=== PATIENT | male | born 1995 | race Caucasian/White ===

== ENCOUNTER 2019-03-17 13:33 | Emergency (ER) | payer BC ==
[2019-03-17 14:01] VITALS: BP 143/92
--- NOTE | 2019-03-17 14:51 | RAD ---
EXAM: Abdomen acute complete. HISTORY: Pain. COMPARISON: None. FINDINGS: A frontal view of the chest and frontal upright and supine views of abdomen are obtained. There is no infiltrate, pleural effusion or pneumothorax. The heart is normal in size. No abnormally dilated loop of bowel seen. There is no free air. IMPRESSION: 1. No acute pulmonary finding. 2. Nonobstructive bowel gas pattern. Electronically signed by: Paradise Cabral MD (03/17/2019 2:48 PM) [place] [id number]
[2019-03-17] MEDS ORDERED: ONDA4TAB7 PO (15:10)
[2019-03-17] MEDS ORDERED: MELO7.5T29 PO (15:10)
[2019-03-17] MEDS ORDERED: PROM118S9 PO (15:10)
--- NOTE | 2019-03-17 15:10 | PHYS DOC ---
Past History Past Medical History: No Pertinent History Past Surgical History: Other Additional Past Surgical Histo: neisha montenegro sx Additional Smoking Information: vapes Alcohol Use: None Drug Use: Marijuana Adult General Chief Complaint Chief Complaint: OTHER COMPLAINTS [facility] HPI Patient is a 23-year-old male presents with left-sided upper chest pain for the past several months, it waxes and wanes. Nothing makes it significantly better or worse. Patient had 4 episodes of nausea and vomiting this morning. 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 This was relatively recently made worse due to narcotic pain medicines in November with Neisha Montenegro surgery. He has not been on narcotic pain medicines for the past month plus. Patient does use a vague being nicotine delivery device including flavored cartridges. Denies any PE risk factors. No blood in the emesis. No diarrhea. No blood in the stool or black tarry-looking stools.[] Review of Systems Review of Systems Constitutional: Denies fever or chills [] Eyes: Denies change in visual acuity, redness, or eye pain [] HENT: Denies nasal congestion or sore throat [] Respiratory: See history of present illness[] Cardiovascular: No additional information not addressed in HPI [] GI: Denies abdominal pain, vomiting, bloody stools or diarrhea [] : Denies dysuria or hematuria [] Musculoskeletal: Denies back pain or joint pain [] Integument: Denies rash or skin lesions [] Neurologic: Denies headache, focal weakness or sensory changes [] Endocrine: Denies polyuria or polydipsia [] All other systems were reviewed and found to be within normal limits, except as documented in this note. Allergies Allergies Allergies Coded Allergies Type Severity Reaction Last Updated Verified No Known Drug Allergies 03/17/19 No Physical Exam Physical Exam Constitutional: Well developed, well nourished, no acute distress, non-toxic appearance. [] HENT: Normocephalic, atraumatic, bilateral external ears normal, oropharynx moist, no oral exudates, nose normal. [] Eyes: PERRLA, EOMI, conjunctiva normal, no discharge. [] Neck: Normal range of motion, no tenderness, supple, no stridor. [] Cardiovascular:Heart rate regular rhythm, no murmur [] Lungs & Thorax: Bilateral breath sounds clear to auscultation [] Abdomen: Bowel sounds normal, soft, no tenderness, no masses, no pulsatile masses. [] Skin: Warm, dry, no erythema, no rash. [] Back: No tenderness, no CVA tenderness. [] Extremities: No tenderness, no cyanosis, no clubbing, ROM intact, no edema. [] Neurologic: Alert and oriented X 3, normal motor function, normal sensory function, no focal deficits noted. [] Psychologic: Affect normal, judgement normal, mood normal. [] Current Patient Data Vital Signs Vital Signs Date Time Temp Pulse Resp B/P (MAP) Pulse Ox O2 Delivery O2 Flow Rate FiO2 03/17/19 14:01 68 18 97 Room Air EKG EKG [] Radiology/Procedures Radiology/Procedures REASON: left sided upper abdominal and lung pain PROCEDURE: ACUTE ABDOMEN SERIES EXAM: Abdomen acute complete. HISTORY: Pain. COMPARISON: None. FINDINGS: A frontal view of the chest and frontal upright and supine views of abdomen are obtained. There is no infiltrate, pleural effusion or pneumothorax. The heart is normal in size. No abnormally dilated loop of bowel seen. There is no free air. IMPRESSION: 1. No acute pulmonary finding. 2. Nonobstructive bowel gas pattern.[] Course & Med Decision Making Course & Med Decision Making Pertinent Labs and Imaging studies reviewed. (See chart for details) ED course: Patient arrived, was placed in bed, and tolerated exam well. His were to and from radiology with any complications. After the return of the imaging findings, these were discussed with patient and family who voiced understanding. All questions were answered. He was discharged in improved condition. Cold decision making: There is no evidence of pneumonia, pneumothorax, nor significant lung injury based on the chest imaging finding. No evidence of obstruction or perforation. No evidence of oral intake intolerance.[] Dragon Disclaimer Dragon Disclaimer This electronic medical record was generated, in whole or in part, using a voice recognition dictation system. Departure Departure: Impression: Primary Impression: Nausea and vomiting Additional Impression: Pleurisy Disposition: HOME, SELF-CARE Condition: IMPROVED Referrals: PCP,UNKNOWN (PCP) Patient Instructions: Nausea and Vomiting, Pleurisy Additional Instructions: Drink plenty of fluids, frequent small sips. No fatty foods, no milk, and no pepper for the next 48 hours. For the next 48 hours eat a diet rich in carbohy drates with foods such as bananas, rice, applesauce, and toast. Follow-up with your regular doctor in 2 days. If you do not have regular doctor list of local clinics will be provided. Return to the ER if worsening pain, difficulty breathing, or any other concerns. Scripts Ondansetron Hcl (ZOFRAN) 4 Mg Tablet 1 TAB PO Q6HRS for nausea or vomiting, #20 TAB Prov: RICCI WHITNEY DO 03/17/19 D-Methorphan Hb/Prometh Hcl (PROMETHAZINE-DM SYRUP) 118 Ml Syrup 5 ML PO PRN Q4HRS for cough or congestion, #120 ML Prov: RICCI WHITNEY DO 03/17/19 Meloxicam (MELOXICAM) 7.5 Mg Tablet 7.5 MG PO DAILY for PAIN, #20 TAB Prov: RICCI WHITNEY DO 03/17/19 Problem Qualifiers Primary Impression: Nausea and vomiting Vomiting type: unspecified Vomiting Intractability: non-intractable Qualified Codes: R11.2 - Nausea with vomiting, unspecified RICCI WHITNEY DO Mar 17, 2019 15:10
== END 2019-03-17 15:16 | disposition home or self-care (01) ==
LOC: ER 13:33
DX: R09.1 Pleurisy (principal); R11.2 Nausea with vomiting, unspecified; F17.200 Nicotine dependence, unspecified, uncomplicated
CPT/HCPCS: 74022; 99284